=== PATIENT | female | born 1965 | race Caucasian/White ===

== ENCOUNTER 2025-07-29 09:44 | Inpatient (IN) | payer MEDICAID ==
[2025-07-21 11:50] LABS: MEAN PLATELET VOLUME 5.9 FL (7.4-10.4); PRE OP HEMATOCRIT 36.1 % (35.0-45.0); PRE OP HEMOGLOBIN 11.5 g/dL (12.0-16.0); PRE OP PLATELET COUNT 193 X10'3 (140-440); PRE OP WHITE BLOOD COUNT 7.4 10'3 (4.8-10.8); RED CELL DISTRIBUTION WIDTH 19.4 % (11.5-14.5)
--- NOTE | 2025-07-21 11:55 | ELECTROCARDIOGRAPH REPORT ---
[facility] Test Date: 2025-07-21 Test Time: 11:42:41 Pat Name: JULIA DAUGHERTY Department: PRE/OP CARDIOLOGY Room: Gender: F Damascener: VINCENZO : 1965 Requested By: JAVIER ROSENBERG Order Number: [id number] Reading MD: Dr. MAKENNA English Measurements Intervals [place] Rate: 133 P: 74 WA: 154 QRS: 77 QRSD: 83 T: 28 QT: 297 QTc: 442 Interpretive Statements Sinus tachycardia Electronically Signed On 07-21-2025 12:52:[address] MAKENNA English Please click the below link to view image of tracing.
[2025-07-21 12:12] LABS: CREATININE 0.80 MG/DL (0.40-0.90); PRE OP ALT 7 U/L (30-65); PRE OP ANION GAP 7 (8-16); PRE OP AST 19 U/L (10-37); PRE OP BILIRUB, TOTAL 0.3 MG/DL (0.0-1.0); PRE OP GLUCOSE 109 MG/DL (70-104); PRE OP POTASSIUM 4.2 MMOL/L (3.4-5.1); PRE OP SODIUM 138 MMOL/L (135-145); TOTAL CARBON DIOXIDE 29.2 MMOL/L (24-32); eGFR 74 ML/MIN
[2025-07-21 12:27] LABS: EOSINOPHILS % (MANUAL) 1.0 % (0-6); LYMPHOCYTES % (MANUAL) 8.0 % (21-51); MONOCYTES % (MANUAL) 16.0 % (2-12); NEUTROPHILS % (MANUAL) 75.0 % (42-75); PLATELET ESTIMATE NORMAL
[~2025-07-29] VITALS: Ht 167.6 cm; Wt 74.6 kg
[2025-07-29] VITALS (33 sets, daily range): BP systolic 80–127; BP diastolic 53–71; PULSE 73–107; RESP 12–20; TEMP 97.6–98.9; O2SAT 93–100
[2025-07-29] MEDS: ceFAZolin 2gm/dext,iso 50mL 50 ML IV ONE (05:30)
[2025-07-29] MEDS: levoTHYROXINE 88mcg tablet PO SCH (08:00)
[2025-07-29] MEDS: loperamide 2mg capsule PO SCH (08:00)
[~2025-07-29 09:44] MED LIST: DOCU100C41 PO; FAMO-49 PO; FURO-150 PO; GABA300C PO; LIT300C PO; LOPE2TAB25 PO; MELO-100 PO; PCA WASTE DOCUMENTATION 1 MG ML MC SCH; POTA-192 PO; RAME8TAB24 PO; SERT25TA PO; SULF500T59 PO; SYN0.088T PO; bisacodyl 10mg suppository rectal RC PRN; docusate sod 100mg capsule PO PRN; magnesium hydroxide 30ml (MOM) UD suspension PO PRN; ondansetron/PF 4mg/2ml inj IV PRN; oxyCODONE IR 5mg (immed. release) tablet PO PRN; tetracaine 1% (10mg/ml) pres. free inj. ONE
[2025-07-29] MEDS: ringers solution, lacted 1,000 ML IV SCH (10:29)
[2025-07-29] MEDS: VANCOMYCIN/H2O 1.5g/300mL PB 300 ML IV ONE (10:30)
[2025-07-29] MEDS ORDERED: ROPIVAcaine 0.5% (5mg/ml) 30ml vial ONE ×3 (11:50→14:45)
[2025-07-29] MEDS ORDERED: morphine 4 MG/ML inj SYRINge IV PRN (12:40)
[2025-07-29] MEDS ORDERED: ringers solution, lacted 1,000 ML IV SCH (12:40)
[2025-07-29] MEDS ORDERED: ROPIVAcaine 0.2% (10 MG/5 ML) BOLUS INJECTION ADDCANAL PRN (12:40)
[2025-07-29] MEDS ORDERED: hydrALAZINE 20mg/ml inj. IV PRN (12:40)
[2025-07-29] MEDS ORDERED: ondansetron/PF 4mg/2ml inj IV PRN (12:40)
[2025-07-29] MEDS ORDERED: HYDROmorphone/PF 0.2 MG/ML SYRINGE IV PRN ×2 (12:40)
[2025-07-29] MEDS ORDERED: labetalol 20mg/4ml (5mg/ml) syringe IV PRN (12:40)
[2025-07-29] MEDS ORDERED: propofol 10mg/ml 20ml vial IV ONE (12:45)
[2025-07-29] MEDS ORDERED: phenylephrine 10mg/ml inj. ONE (12:45)
[2025-07-29] MEDS ORDERED: fentaNYL/PF 50MCG/1 ML 2ML syringe ONE (13:00)
[2025-07-29] MEDS ORDERED: MIDAZolam 1mg/ml 10ml vial ONE (13:19)
--- NOTE | 2025-07-29 14:34 | ANESTHESIA RECORDS ---
Nerve Block Providers to CC CC: JAVIER ROSENBERG MD ~ Diagnosis: Nerve Block requested by: JAVIER ROSENBERG MD Neuraxial/Peripheral Nerve Block requested for Post-operative analgesia by Physician above DIAGNOSIS: Post-operative pain. (Body Area) Shoulder: [ ] Arm: [ ] Hand: [ ] Hip: [ ] Knee: [ Left ] Ankle: [ ] Foot: [ ] Leg: [ ] Abdomen: [ ] Other: [ ] Post-operative pain expected to be/is inadequately managed by oral or IV medicines. Regional anesthetic expected to facilitate rehabilitation and/or discharge from facility. Other:[ _] Procedure Performed: Femoral / Saphenous: Left Time out Done?: Yes Time of Time out: 12:57 Procedure Details: PROCEDURE DETAILS: Risks, benefits and alternatives explained Informed consent obtained, and patient wishes to proceed Conscious sedation with indicated monitors Patient positioned, pertinent anatomy defined, sterile technique used Needle used: [ ] 3 1/8 inch Stimuplex Ultra 22ga [ ] 4 inch Stimuplex Ultra 20ga [ ] 6 inch Stimuplex Ultra 20ga [X ] 6 inch, Quikbloc over the needle catheter set 20ga [ ] 4 inch Quikbloc over the needle catheter set 20ga [ ]Other: [ ] Loss of twitch @ [ ]mA [ ] Single Injection [X] Catheter Ultrasound Guidance Used: [X ] Yes [ ] No Attempts:[_1 ] Medicines injected: [ ]Clonidine Amt:[ ] [ ]Dexamethasone Amt:[ ] [X ]Ropivacaine Amt:[____0.5% 30 .c.c ] [ ]Bupivacaine Amt:[ ] [ ]Lidocaine Amt:[ ] [ ]Exparel 1.33%:[ ] [ ]Epinephrine Amt[ ] [ ]Other: [ ] Intermittent aspiration during local anesthetic administration No symptoms of intraneural or intravenous injection Patient tolerated procedure well Comments Left mid medial thigh is examined with Ultrasound and Adductor canal and vessels in the canal are identified. Catheter over needle is placed in the canal. After negative aspirations, Local anesthetic is injected. spread is noted. Needle is removed,catheter is secured. Sterile dressings applied. ON q pump ordered for post operative pain management. Ultrasound image are captured and documented. FRANK TUCKER MD Jul 29, 2025 14:33
[2025-07-29] MEDS: ROPIVAcaine 0.2%/PF PUMP/bolus 545 ML ADDCANAL SCH (15:47)
--- NOTE | 2025-07-29 15:54 | OPERATIVE REPORT ---
Operative Report Operative Report OPERATIVE REPORT [facility] [address] [place] [address] Date of service: July 29, 2025 PREOPERATIVE DIAGNOSIS M17..16 Unilateral primary osteoarthritis, left knee POSTOPERATIVE DIAGNOSIS M17..16 Unilateral primary osteoarthritis, left knee Operation Performed 42406 Total Knee Arthro[place] [address] Computer Assisted Navigation Musculoskeletal - Imageless 04768 Remote therapeutic monitoring; device supply with scheduled recordings every 30 days. Procedure: Computer-assisted, robotically-assisted, left total knee arthroplasty. Surgeon: Dr. Joey Christensen Administrative Executive: Awa Mccabe PA-C Anesthesiologist: Dr. Abel Anesthesia: Spinal anesthetic Indications: 59-year-old female who has chronic rheumatoid arthritis of the left knee with severe pain and limitation of activities despite extensive non- operative management. This patient has had extensive conservative treatment of knee joint arthritis, including rest, external joint support, anti-inflammatory medications, physical therapy, and corticosteroid injection. Physical therapy has been provided, along with a home exercise program prior to making the decision to proceed with surgical treatment. This therapeutic intervention did not provide any substantial relief of symptoms or improvement in function. The patient has been utilizing a cane, set of crutches, or walker, for more than 3 months prior to deciding to proceed with surgery. These interventions have not provided sufficient relief of pain to allow improvement in function. The patient has utilized non-steroidal anti-inflammatory medications for relief of pain over an extended period of time (more than 2 months), and has not experienced sufficient improvement in symptoms. Despite these treatments, this patient has continued difficulties with pain and limited function. They are unable to walk long distances, do vigorous activities, sit or sleep comfortably. Total knee replacement is the next reasonable step in terms of treatment. Indications for household assistant surgeon: A second set of skilled hands with specific orthopedic knowledge of the surgical procedure and orthopedic surgical techniques was necessary to accomplish this operation successfully, and with the least amount of morbidity for the patient. This facilitated operative exposure, manipulation and handling of tissues, placement of any implants, and accomplishment of wound closure. Findings: There was indeed a very severely arthritic knee, with loss of cartilage, exposed bone, and marginal osteophytes. The lateral compartment was particularly bad. A 11 degree valgus deformity and a 14 degree flexion contracture were measured preoperatively. Post operative alignment was undetermined as one of the femoral arrays became loose and moved so we could not obtain final measurements. However clinically she appeared straight and into full extension Complications: None Estimated Blood Loss: 150 mL Implants: A [employer] CR total knee system was utilized with a size seven narrow left cemented femoral component, and a size D left cemented tibial smart stem. A 10 mm medial congruent left tibial insert was utilized. The [employer] robotically assisted total knee arthroplasty system and computer was utilized. Procedure: The risks, benefits, expected results, and possible complications of the planned procedure had been explained to the patient and informed consent obtained. The patient was taken to the operating room and underwent a spinal anesthetic. The patient was placed in the supine position on the operating table, and the left leg was prepped and draped in the usual fashion. A timeout was taken prior to surgery, confirming patient identification, operative side operative site, planned procedure, administration of pre-operative antibiotics, site marking, and presence of all necessary implants and instruments, x-rays and equipment. A standard anterior, slightly medial approach was performed with a medial parapatellar arthrotomy, and a VMO split. Time was then spent removing excessive synovial tissue and exposing the medial and lateral gutters, as well as moving the anterior sections of the residual menisci. The patella was mobilized to be able to be retracted laterally. This gave exposure of the anterior aspect of the knee. Attention was then directed to the patella. The patella was in excellent condition so we decided not to resurface the patella. Infrared arrays were then placed on the femur and the tibia. Utilizing the [employer] computer system, the hip, knee, and ankle were landmarked in usual fashion. The initial alignment measurements were then taken confirming the above listed deformity. Surgical planning was then carried out on the computer, confirming alignment of components, sizing, and gap balancing. Appropriate soft tissue releases were performed. The robot was then utilized to make the distal femoral cut. The femur was prepared in 4 degrees of flexion and neutral coronal alignment. The distal femoral 4 in 1 block was placed with the robot, and the remaining femoral cuts also performed. A repeat cut of the femur was performed, after validation, to gain perfect alignment. The robot was then utilized to cut the proximal tibia in 5 degrees of flexion and neutral coronal alignment. The computer was then utilized to check longitudinal alignment and soft tissue balance, and this confirmed excellent alignment. Next the dynamic balancing block was utilized to check and adjust soft tissue balancing. The trial implant was sized and properly rotated, and the peg drilling performed. Final check of alignment and balancing was then carried out with trials in place, as well as final removal and cleaning up of soft tissue such as meniscal remnants and osteophytes. Cement was then mixed; 2 batches were utilized, mixed together, for the tibia, the femur and the patella. The cut surface of the tibia was thoroughly lavaged with the pulsating lavage and then dried. The tibia was impacted with the mallet, seating it quite nicely in its proper rotational alignment. Excess cement was removed from around the margins. The femoral cuts were cleaned with a pulsating lavage and then dried with the lap sponges, and the femur was impacted into position with a mallet. Excess cement was removed around the margins of the components as the cement cured. Pressure was held on the femoral component and tibia by placing a spacer and bringing the leg to full extension and applying axial and hyperextension force. Upon complete hardening of all cement, the knee was inspected and excess cement removed. We lavaged the knee to wash out any debris and checked to make sure we had no impinging cement. The trial spacer was replaced and overall alignment checked with computer, ensuring we had full extension of the knee, and appropriate medial and lateral soft tissue balance, as well as flexion and extension balance. The wound was irrigated thoroughly one more time and then dried with lap sponges. The final tibial spacer was impacted and locked into the locking mechanism without difficulty. I lavaged the knee to wash out any debris. The tibial trial spacer was replaced and overall alignment checked with computer, ensuring we had full extension of the knee, and appropriate medial and lateral soft tissue balance, as well as flexion and extension balance. The wound was irrigated thoroughly one more time and then dried with lap sponges. The final tibial spacer was impacted and locked into the locking mechanism without difficulty. The retinacular incision was closed with #2 Quill suture, and subcutaneous tissue closed with #2-0 Vicryl suture. Skin was closed with 4-0 Monocryl suture. A sterile dressing was applied, and the patient was returned to the recovery room in satisfactory condition. In the recovery area the remote monitoring station was dispensed to the patient and family. Instructions were given for its usage and hooker on once the patient got home. We also confirmed the patient had installed the [employer] mobility software, and we ensured that the patient was enrolled in appropriate software platform from our end. Remote monitoring was initiated at the preoperative appointment and the devices used for remote monitoring implanted and dispensed today. Electronically Signed by: Joey Christensen MD Doctor, Orthopedic Surgery Signed on: 07/29/2025 03:54 PM JOEY CHRISTENSEN MD Jul 29, 2025 15:54
[2025-07-29] MEDS: acetaminophen 1,000mg/100ml IV 100 ML IV ONE (15:59)
[2025-07-29] MEDS: albumin (Human) 5% 250ml 250 ML IV ONE (16:00)
[2025-07-29] MEDS: ceFAZolin/D5W- 1GM premix 50 ML IV SCH (19:54)
[2025-07-29] MEDS: oxyCODONE IR 5mg (immed. release) tablet PO PRN (19:55)
[2025-07-29] MEDS: HYDROmorphone/PF 0.2 MG/ML SYRINGE IV PRN (23:10)
[2025-07-29] MEDS: vancomycin/NS 1 GM ADD-VANTAGE 250 ML IV SCH (23:42)
[2025-07-30 02:00] VITALS: BP 116/62; PULSE 97; RESP 13; TEMP 97.5; O2SAT 96
[2025-07-30] MEDS: potassium cl 20mEq in 1/2 NS 1,000 ML IV SCH (03:08)
[2025-07-30 04:49] LABS: MEAN PLATELET VOLUME 5.8 FL (7.4-10.4); RED CELL DISTRIBUTION WIDTH 18.3 % (11.5-14.5)
[2025-07-30 05:01] LABS: TOTAL CARBON DIOXIDE 28.9 MMOL/L (24-32)
[2025-07-30 06:00] VITALS: BP 116/71; PULSE 110; RESP 16; TEMP 97.6; O2SAT 94
--- NOTE | 2025-07-30 06:59 | DISCHARGE SUMMARY ---
Discharge Summary Ortho CC ~ Discharge Summary Discharge Date: Jul 30, 2025 *Problems/Diagnosis: (1) S/P total knee arthroplasty Status: Acute Admission Diagnosis: osteoarthritis Discharge Diagnosis\Comment: see above Operations\Procedures see above Consultants: none Complications: none Condition on DC: Stable Discharge Summary: Patient was admitted on date of surgery. Surgery went without complication. Uneventful overnight stay. Pain managed. Dressing clean and dry. Patient stable for discharge home as long as PT criteria met today. Total Time Spent on D/C: Up to 30 Minutes Medications Home Meds: Home Medications Active Reported Neurontin (Gabapentin) 300 Mg Capsule 300 Mg PO BID Loperamide (Loperamide Hcl) 2 Mg Tablet 2 Mg PO DAILY Synthroid* (Levothyroxine Sodium) 88 Mcg Tablet 1 Tab PO DAILY Zoloft* (Sertraline HCl) 25 Mg Tablet 3 Tab PO DAILY Lasix* (Furosemide) 20 Mg Tablet 10 Mg PO DAILY Klor-Con (Potassium Chloride) 10 Meq Tab.prt.sr 1 Tab PO DAILY Azulfidine* (Sulfasalazine) 500 Mg Tablet 1,000 Mg PO BID LITHIUM CARBONATE tablet ([place] Carbonate) 300 Mg Tablet.sa 300 Mg PO DAILY Famotidine 20 Mg Tablet 1 Tab PO BID 30 Days Ramelteon 8 Mg Tablet 1 Tab PO HSPRN PRN 30 Days Meloxicam* (Meloxicam) 7.5 Mg Tablet 1 Tablet PO BID Docusate Sodium 100 Mg Capsule 1 Cap PO DAILY PRN 30 Days Supervising Physician Supervising Physician: Dr. Joey Christensen Problem Qualifiers (1) S/P total knee arthroplasty: Qualified Codes: Z96.652 - Presence of left artificial knee joint FUENTES BUENO Jul 30, 2025 06:59
[2025-07-30 10:00] VITALS: BP 94/62; PULSE 102; RESP 18; TEMP 98.3; O2SAT 94
[2025-07-30] MEDS: HYDROmorphone inj. 0.5 MG/0.5 ML DISP.SYRIN IV PRN (11:19)
[2025-07-30 12:48] VITALS: RESP 14
== END 2025-07-30 14:07 | disposition home health service (06) | DRG 326 ==
LOC: PAS IN 09:44 → ORTHO 4S 19:05
PROVIDERS: ADMIT Orthopaedic Surgery; ATTEND Orthopaedic Surgery
PROC: 8E0YXBZ Computer Assisted Procedure of Lower Extremity (ICD-10-PCS; 2025-07-29)
PROC: 8E0Y0CZ Robotic Assisted Procedure of Lower Extremity, Open Approach (ICD-10-PCS; 2025-07-29)
PROC: 3E0T3BZ Introduction of Anesthetic Agent into Peripheral Nerves and Plexi, Percutaneous Approach (ICD-10-PCS; 2025-07-29)
PROC: 0SRD0J9 Replacement of Left Knee Joint with Synthetic Substitute, Cemented, Open Approach (ICD-10-PCS; principal; 2025-07-29 12:51)
DX: M17.12 Unilateral primary osteoarthritis, left knee (principal); M21.062 Valgus deformity, not elsewhere classified, left knee
CPT/HCPCS: 36415; 80051; 80053; 82948; 84443; 85007; 85025; 87081; 93005; 97161; 97530; A4215; A4314; A6449; C1713; C1776; C9250; G0378; J0131; J0690; J1171; J2250; J2312; J2371; J2405; J2704; J2795; J3010; J3373; J3375; J3480; J3490; J7120; P9045; Q0163